=== PATIENT | male | born 1995 | race Caucasian/White ===

== ENCOUNTER 2017-02-28 15:29 | Inpatient (IN) | payer OTHER ==
[~2017-02-28] VITALS: Ht 190.5 cm; Wt 159.1 kg
[2017-02-28 16:43] LABS: BENZODIAZEPINE, URINE NEG (NEG); COCAINE,URINE NEG (NEG); PHENCYCLIDINE, URINE NEG (NEG)
[2017-02-28 17:10] LABS: HEMATOCRIT 43.3 % (42-52); MEAN CELL VOLUME 82.5 fL (80-100); MEAN CORPUSCULAR HEMOGLOBIN 30.3 pg (25-34); MEAN CORPUSCULAR HGB CONC 36.7 g/dl (32-36); MEAN PLATELET VOLUME 9.8 fL (7.4-10.4); PLATELET COUNT 292 K/uL (130-400); RED BLOOD COUNT 5.25 M/uL (4.7-6.1); WHITE BLOOD COUNT 8.57 K/uL (4.8-10.8)
[2017-02-28 17:33] LABS: ALT/SGPT 34 U/L (12-78); AST/SGOT 13 U/L (15-37); BLOOD UREA NITROGEN 12 mg/dl (7-18); BUN/CREATININE RATIO 11.9 (10-20); CARBON DIOXIDE 24 mmol/L (21-32); CHLORIDE 107 mmol/L (98-107); CREATININE 0.98 mg/dl (0.60-1.40); GLUCOSE 98 mg/dl (70-99); POTASSIUM 3.8 mmol/L (3.5-5.1); SODIUM 136 mmol/L (136-145)
[2017-02-28 17:37] LABS: ACETAMINOPHEN < 2 ug/ml (10-30)
[2017-02-28 17:44] LABS: ALKALINE PHOSPHATASE 84 U/L (45-117)
--- NOTE | 2017-02-28 17:51 | EMERGENCY ROOM VISIT NOTE ---
History Report prepared by Ulises: Bc Villalta Under the Supervision of: Dr. Anuel Goldsmith M.D. First contact with patient: 15:41 Chief Complaint: MENTAL HEALTH EVALUATION Stated Complaint: SUICIDAL THOUGHTS History of Present Illness The patient is a 22 year old male who presents to the Emergency Room for a mental health evaluation. He has been intermittently depressed for about 2 years. He was first started on Wellbutrin but recently changed to Prozac 2 weeks ago. A couple of weeks ago, the patient began having suicidal thoughts including cutting himself and overdosing on medications. He states that he has been having increased stresses and pressures from school that have exacerbated his depression. His parents are the main reason why he has not followed through with either of his suicide plans. He denies any relationship troubles, of loved ones, or other health issues. He has been following up with a therapist over these past years. Today, he had a mental break down so he called his parents. They told him to call his therapist who was not in the office, but referred him to the ER. He has never before been hospitalized for his mental health. He has some friends and a roommate at school, but states that he does not like to talk about his feelings with other people. He denies any abnormal physical symptoms at this time. He smokes marijuana about two times a week, but denies doing it recently. Source of History: patient Onset: a couple weeks ago Position: other (Mental Health) Symptom Intensity: moderate Quality: other (Depression) Timing: worsening Note: He has been having suicidal thoughts with a plan to either cut himself or overdose on medications. He denies any abnormal physical symptoms. Review of Systems See HPI for pertinent positives & negatives. A total of 10 systems reviewed and were otherwise negative. Past Medical & Surgical Medical Problems: (1) Depression Family History Patient reports no known family medical history. Social History Smoking Status: Never Smoker Smokeless Tobacco Use: No Drug Use: marijuana Marital Status: single Occupation Status: student Physical Exam Vital Signs Date Time Temp Pulse Resp B/P (MAP) Pulse Ox O2 Delivery O2 Flow Rate FiO2 02/28/17 15:34 37.3 92 18 137/94 97 Room Air Physical Exam Constitutional: Vital signs reviewed. Eyes: Pupils are equal round reactive to light. Conjunctiva are noninjected. ENT: Pharynx is clear without erythema or exudate. Mucous membranes are moist. Neck supple without meningeal signs. Respiratory: Clear to auscultation bilaterally. Breath sounds are equal bilaterally. Cardiovascular: Regular rate and rhythm. No rubs or gallops. GI: Soft, nondistended and nontender. Bowel sounds are present. Musculoskeletal: No peripheral edema. No wrist lacerations. Integumentary: No cyanosis. Neurological: The patient is awake and alert. No focal deficits. Psychiatric: Depressed affect. Medical Decision & Procedures Laboratory Results 02/28/17 16:46 02/28/17 16:46 Test 02/28/17 16:00 02/28/17 16:46 Urine Opiates Screen NEG (NEG) Urine Methadone, Qualitative NEG (NEG) Urine Barbiturates NEG (NEG) Urine Phencyclidine (PCP) Level NEG (NEG) Ur Amphetamine/Methamphetamine NEG (NEG) MDMA (Ecstasy) Screen NEG (NEG) Urine Benzodiazepines Screen NEG (NEG) Urine Cocaine Metabolite NEG (NEG) Urine Marijuana (THC) POS (NEG) Red Blood Count 5.25 M/uL (4.7-6.1) Mean Corpuscular Volume 82.5 fL (80-100) Mean Corpuscular Hemoglobin 30.3 pg (25-34) Mean Corpuscular Hemoglobin Concent 36.7 g/dl (32-36) RDW Standard Deviation 37.5 fL (36.4-46.3) RDW Coefficient of Variation 12.5 % (11.5-14.5) Mean Platelet Volume 9.8 fL (7.4-10.4) Anion Gap 5.0 mmol/L (3-11) Est Creatinine Clear Calc Drug Dose 191.2 ml/min Estimated GFR () 126.3 Estimated GFR (Non- 109.0 BUN/Creatinine Ratio 11.9 (10-20) Calcium Level 9.0 mg/dl (8.5-10.1) Total Bilirubin 0.3 mg/dl (0.2-1) Direct Bilirubin < 0.1 mg/dl (0-0.2) Aspartate Amino Transf (AST/SGOT) 13 U/L (15-37) Alanine Aminotransferase (ALT/SGPT) 34 U/L (12-78) Alkaline Phosphatase 84 U/L (45-117) Total Protein 7.3 gm/dl (6.4-8.2) Albumin 3.5 gm/dl (3.4-5.0) Thyroid Stimulating Hormone (TSH) 1.880 uIu/ml (0.300-4.500) Salicylates Level < 1.7 mg/dl (2.8-20) Acetaminophen Level < 2 ug/ml (10-30) Ethyl Alcohol mg/dL < 3.0 mg/dl (0-3) Laboratory results as reviewed by me. ED Course 1541: The patient was evaluated in room A6. A complete history and physical exam was performed. 1655: After evaluation by case management, he scored high on the suicide risk assessment. He is willing to sign into the hospital voluntarily for further mental health management. Medical Decision This is a 22-year-old male who presents for mental health evaluation. I did perform a limited focused review of portions of the patient's old chart on the electronic medical record. The patient has had no recent pertinent visits to this hospital. I did evaluate the patient as noted above. I did order and review the patient's blood work as noted in the electronic medical record. Urine drug screen shows marijuana. I did medically clear the patient. The patient was evaluated by the mental health outsole caser and 3 S. He was admitted to the 3 S. behavioral unit voluntarily. Medication Reconcilliation Current Medication List: was personally reviewed by me Blood Pressure Screening Patient's blood pressure: Elevated blood pressure Blood pressure disposition: Referred to PCP Impression Primary Impression: Mood disorder Additional Impression: Suicidal ideation Scribe Attestation The scribe's documentation has been prepared under my direct and personally reviewed by me in its entirety. I confirm that the note above accurately reflects all work, treatment, procedures, and medical decision making performed by me. Departure Information Dispostion Mental Health Acute Care Referrals No Doctor, Assigned (PCP) Patient Instructions My [facility] Problem Qualifiers
[2017-02-28 18:32] LABS: URINE APPEARANCE CLEAR (CLEAR); URINE BILIRUBIN NEG (NEG); URINE COLOR YELLOW; URINE NITRITE NEG (NEG); URINE PH 7.5 (4.5-7.5); UROBILINOGEN NEG (NEG); ZZUR CULT IF INDIC CLEAN CATCH NO
[2017-02-28 18:38] LABS: MANUAL MICROSCOPIC REQUIRED? NO; REVIEW REQ? NO
[2017-02-28 19:01] VITALS: O2SAT 99
[2017-02-28] MEDS ORDERED: PATIENT'S ALLERGY INFO NEEDS ENTERED SCH (19:30)
[2017-02-28] MEDS ORDERED: NURSING VERBAL MED ORDER SCH (19:30)
[2017-02-28] MEDS ORDERED: ALUMINUM/MAGNESIUM SUSP 30 ML UDC PO PRN (19:45)
[2017-02-28] MEDS ORDERED: SODIUM CHLORIDE 0.65% NA SOLN 45 ML (OCEAN) PRN (19:45)
[2017-02-28] MEDS ORDERED: ACETAMINOPHEN 325 MG TAB PO PRN (19:45)
[2017-02-28] MEDS ORDERED: MAGNESIUM HYDROXIDE SUSP 30 ML UDC PO PRN (19:45)
[2017-02-28] MEDS ORDERED: hydrOXYzine HCL 25 MG TAB PO PRN ×2 (19:45)
[2017-02-28] MEDS ORDERED: BISMUTH SUBSALICYLATE PER ML OMNICELL CHARGE PO PRN (19:45)
[2017-02-28 20:44] VITALS: BP 135/84; PULSE 76; TEMP 37.3; BMI 43.8
[2017-02-28] MEDS: FLUOXETINE HCL 10 MG CAP PO SCH (22:38)
[2017-03-01 07:07] VITALS: BP_SYST 113; BP_SYST 118; BP_DIAS 79; BP_DIAS 83; PULSE 66; PULSE 69; TEMP 36.5
[2017-03-01 07:12] VITALS: Ht 190.5 cm; Wt 159.1 kg
[2017-03-01] MEDS: FLUOXETINE HCL 10 MG CAP PO SCH (09:06)
[2017-03-01] MEDS ORDERED: NURSING VERBAL MED ORDER ONE (12:15)
--- NOTE | 2017-03-01 18:02 | Psychiatric History & Physical ---
History Date of Service Mar 01, 2017. Identifying Data Kahlil Gómez is a 22-year-old male from [place], [place] who currently attends [employer]. Kahlil Gómez was admitted on a 201 voluntary commitment. Patient is admitted from home. Information provided by the patient is considered to be reliable. Chief Complaint "Depression". History of Present Illness 22 year old male who presents to the Emergency Room for a mental health evaluation. He has been depressed on and off for about 2 years. Started seeing LUDY Ivy at [place] around start of summer 2016 and prescribed Wellbutrin. Initially felt that depression was improving but then stopped it later in summer after feeling that benefits had worn off so discontinued medication and off medications for a few months. Returned back home over break and saw his PCP Rizwana Hanley and started on Prozac 10mg daily for a week and then increased to 20mg about 1 1/2 weeks ago. A couple of weeks ago, the patient began having suicidal thoughts including cutting himself and overdosing on medications. Increased stresses and pressures from school as he has has fallen farther behind as he has not attended classes in about a month and has not reached out to his professors and this has aggravated his depression. Increased stress of being let go from his job at a [employer] 3 days prior to admission due to frequently calling off. Seeing his therapist [facility] [facility]. His parents have been his main support and reason why he has not followed through with either of his suicide plans. They told him to call his therapist who was not in the office, but referred him to the ER. He has never before been hospitalized for his mental health. He has some friends and a roommate at school, but states that he does not like to talk about his feelings with other people. Increased social anxiety and avoids social situations. Smokes marijuana about two times a week. Past Psychiatric History Current OP Treatment: no current treatment (saw physician social and human services assistant Shavon Martinez in the past.) Prior OP Treatment: therapist (at [facility]) Prior Psych Hospitalizations: none Access to a Gun: No Suicide Attempts: Yes (just before entering senior year of high school suicide attempt by overdose of pain medications.) Past Medical/Surgical History History of Concussion/Seizure: No (1) Depression (2) Suicidal ideation (3) Anxiety Allergies Allergies: Coded Allergies: No Known Allergies (Unverified , 02/28/17) Family History Patient reports no known family medical history. History of Suicide: No History of Substance Abuse: Yes (Father - alcohol. Grandfather-alcohol. Uncle - alcohol and drugs.) Psychiatric History: Yes (Mother - seasonal affective disorder - Prozac. Brother - ADHD. Cousin - on psych meds - ? diagnosis ?Bipolar disorder per patient) Alcohol Use Alcohol Use In Past 12 Months: Yes (3-4 liquor drinks 2-3 times a week) AUDIT Total Score: 4 Smoking Use Smoking Status: Never Smoker Substance History Marijuana 1 to 2 times per month. Personal History Lives in: [place], [place] Education: started college ([employer] studying economics. ) Work History: fired from job at [employer] 3 days ago. Relationship History: never Children: none Spiritual Affiliation: none Legal History: none Psychological Trauma History: Denies Hx Traumatic Event Review of Systems Constitutional: no symptoms reported Eyes: reports: no symptoms ENT: reports: no symptoms reported Cardiovascular: reports: no symptoms reported Respiratory: reports: no symptoms reported Gastrointestinal: no symptoms reported Genitourinary - Male: reports: no symptoms Musculoskeletal: no symptoms reported Integumentary: no symptoms reported Neurologic: reports: no symptoms Endocrine: no symptoms Hematologic / Lymphatic: no symptoms Examination Physical Examination A physical exam was performed in the ER prior to admission to the unit by Anuel Goldsmith MD 02/28/2017. I accept that physical as correct/medical clearance for the inpatient physical exam. Vital Signs Vital Signs Past 12 Hours Date Time Temp Pulse Resp B/P (MAP) Pulse Ox O2 Delivery O2 Flow Rate FiO2 03/01/17 07:07 36.5 66 18 113/79 69 118/83 Mental Examination During interview pt is: alert and oriented Appearance: appropriately dressed, appropriately groomed Eye contact is: good Motor behavior is: steady gait & station, no abnormal motor movements Speech: normal in rate, rhythm & volume Affect: depressed, anxious Mood is: depressed, anxious Thought process: goal directed, clear, coherent Thought content: reality based without delusions Suicidal thought are: denied Homicidal thoughts are: denied Hallucinations: denies auditory, denies visual Cognition: memory grossly intact, attention grossly intact Intelligence estimated to be: consistent with level of education Insight: good Judgement: fair Impression / Recommendations Impression 22 yo male [facility]. History of depression and anxiety for past 3 years. Stressors include not attending classes and struggling academically and due to frequent call offs was fired from his job at [employer] 3 days prior to admission. Presented with depression and suicidal thoughts. Past history of suicide attempt just before entering senior year of high school by overdose of pain medications. Inventory Assets Strengths: supportive parents and attending outpatient therapy. Needs: struggling academically and not attending classes Risk Factors Assessment Male: Yes : Yes Access to guns: No Mental Health Diagnoses: Yes Substance use disorders: Yes Previous attempt: Yes Previous attempt; planned: Yes Family history of suicide: No Previous psychiatric stay: No Protective Factors Assessment Jew beliefs: No : No Responsible for young children: No Employed: No Stable relationships: No Supportive family: Yes Recommendations (1) Depression The patient is admitted to [facility] ([facility]) on q 15 min checks (behavioral with suicide precautions) for safety. The patient will participate in group, recreational and milieu therapies and will be offered additional individual and family sessions as clinically appropriate. Will continue Prozac 20mg daily which he initiated about 1 1/2 weeks ago. Will coordinate care with his outpatient providers including PCP and therapist at [facility]. Will contact student affairs department at [employer] and help patient navigate academic difficulties. Reviewed mood altering effects of alcohol and marijuana and encouraged patient to abstain. (2) Anxiety The patient is admitted to [facility] ([facility] on q 15 min checks (behavioral with suicide precautions) for safety. The patient will participate in group, recreational and milieu therapies and will be offered additional individual and family sessions as clinically appropriate. Will continue Prozac 20mg daily which he initiated about 1 1/2 weeks ago. Will coordinate care with his outpatient providers including PCP and therapist at [facility]. Will contact student affairs department at [employer] and help patient navigate academic difficulties. Reviewed mood altering effects of alcohol and marijuana and encouraged patient to abstain. (3) Suicidal ideation The patient is admitted to [facility] ([facility]) on q 15 min checks (behavioral with suicide precautions) for safety. The patient will participate in group, recreational and milieu therapies and will be offered additional individual and family sessions as clinically appropriate. CPT Code Initial Hospital Care: 12356 Problem Qualifiers (1) Depression: Depression Type: major depressive disorder Major depression recurrence: recurrent Active/Remission status: currently active Major depression episode severity: severe Psychotic features: without psychotic features Qualified Codes: F33.2 - Major depressive disorder, recurrent severe without psychotic features
[2017-03-02 07:14] VITALS: BP_SYST 110; BP_SYST 117; BP_DIAS 74; BP_DIAS 79; PULSE 61; PULSE 76; TEMP 36.5
[2017-03-02] MEDS: FLUOXETINE HCL 20 MG CAP PO SCH (09:39)
--- NOTE | 2017-03-02 15:13 | Psychiatric Progress Notes ---
Progress Note Date of Service Mar 02, 2017. Interval History Kahlil Gómez is a 22-year-old male from [place], [place] who currently attends [employer]. Kahlil Gómez was admitted on a 201 voluntary commitment. Patient is admitted from home. Information provided by the patient is considered to be reliable. Chief Complaint "Feel okay". Subjective Patient was seen & assessed interval progress reviewed with Nursing. Patient reports that his mood is okay and rates it as 5/10. Tolerating medications well. Denies thoughts to harm self or others. Had a visit from parents and patient updated them about declining school performance and they were very supportive. Review of Systems Psych: denies symptoms other than stated above Constitutional: denied Cardiovascular: denied GI: denied Neurologic: denied Remainder of 10 body systems also reviewed and denied other than noted above. Sleep Information Total Hours of Sleep: 5.50 Meal Information Percent of Breakfast Consumed: 100 Percent of Lunch Consumed: 75 Percent of Dinner Consumed: 85 Mental Status Exam During interview pt is: alert and oriented Appearance: appropriately dressed, appropriately groomed Eye contact is: good Motor behavior is: steady gait & station, no abnormal motor movements Speech: normal in rate, rhythm & volume Affect: depressed, anxious Mood is: depressed, anxious Thought process: goal directed, clear, coherent Thought content: reality based without delusions Suicidal thought are: denied Homicidal thoughts are: denied Hallucinations: denies auditory, denies visual Cognition: memory grossly intact, attention grossly intact Intelligence estimated to be: consistent with level of education Insight: good Judgement: fair Impression 22 yo male [facility]. History of depression and anxiety for past 3 years. Stressors include not attending classes and struggling academically and due to frequent call offs was fired from his job at [employer] 3 days prior to admission. Presented with depression and suicidal thoughts. Past history of suicide attempt just before entering senior year of high school by overdose of pain medications. Plan (1) Depression The patient is admitted to [facility]) on q 15 min checks (behavioral with suicide precautions) for safety. The patient will participate in group, recreational and milieu therapies and will be offered additional individual and family sessions as clinically appropriate. Will continue Prozac 20mg daily which he initiated about 1 1/2 weeks ago. Will coordinate care with his outpatient providers including PCP and therapist at [facility]. Will contact student affairs department at [employer] and help patient navigate academic difficulties. Reviewed mood altering effects of alcohol and marijuana and encouraged patient to abstain. 03/02 -Continue Prozac 20mg daily. -family meeting on 03/03/2017 and has follow up appointment with psychiatrist in [place] on 03/04/2017 (2) Anxiety The patient is admitted to [facility] ([facility]) on q 15 min checks (behavioral with suicide precautions) for safety. The patient will participate in group, recreational and milieu therapies and will be offered additional individual and family sessions as clinically appropriate. Will continue Prozac 20mg daily which he initiated about 1 1/2 weeks ago. Will coordinate care with his outpatient providers including PCP and therapist at [facility]. Will contact student affairs department at [employer] and help patient navigate academic difficulties. Reviewed mood altering effects of alcohol and marijuana and encouraged patient to abstain. (3) Suicidal ideation The patient is admitted to [facility] ([facility]) on q 15 min checks (behavioral with suicide precautions) for safety. The patient will participate in group, recreational and milieu therapies and will be offered additional individual and family sessions as clinically appropriate. Discharge / Aftercare Planning Primary Care Physician: Name: Rizwana Hanley Therapist: Name: [facility]; Chad Heat Curer: Name: None Visit Code E&M Code: 52018 Inventory Assets Strengths: supportive parents and attending outpatient therapy. Needs: struggling academically and not attending classes Risk Factors Assessment Male: Yes : Yes Mental Health Diagnoses: Yes Substance use disorders: Yes Previous attempt: Yes Previous attempt; planned: Yes Family history of suicide: No Previous psychiatric stay: No Protective Factors Assessment Baptist beliefs: No : No Responsible for young children: No Employed: No Stable relationships: No Supportive family: Yes Data Vital Signs Last 24 Hrs: Date Time Temp Pulse Resp B/P (MAP) Pulse Ox O2 Delivery O2 Flow Rate FiO2 03/02/17 07:14 36.5 61 18 110/74 76 117/79 Meds Administered Last 24 Hrs: Meds Administered (Past 24Hrs) Medications (Trade) Dose Ordered Sig/Jovani Route Start Time Stop Time Status Last Admin Dose Admin Miscellaneous Information (Patient'S Allergy Info Needs Entered) 1 ea Q10M N/A 02/28/17 19:30 02/28/17 19:35 DC 02/28/17 19:31 1 EA Fluoxetine HCl (Prozac Cap) 10 mg BID PO 02/28/17 21:00 03/01/17 11:28 DC 03/01/17 09:06 10 MG Fluoxetine HCl (Prozac Cap) 20 mg QAM PO 03/02/17 09:00 04/01/17 08:59 03/02/17 09:39 20 MG Problem Qualifiers (1) Depression: Depression Type: major depressive disorder Major depression recurrence: recurrent Active/Remission status: currently active Major depression episode severity: severe Psychotic features: without psychotic features Qualified Codes: F33.2 - Major depressive disorder, recurrent severe without psychotic features
[2017-03-03 07:03] VITALS: BP_SYST 102; BP_SYST 110; BP_DIAS 69; BP_DIAS 76; PULSE 65; PULSE 81; TEMP 36.5
[2017-03-03] MEDS: FLUOXETINE HCL 20 MG CAP PO SCH (08:59)
--- NOTE | 2017-03-03 12:45 | Psychiatric Progress Notes ---
Progress Note Date of Service Mar 03, 2017. Interval History Kahlil Gómez is a 22-year-old male from [place], [place] who currently attends [facility]. Kahlil Gómez was admitted on a 201 voluntary commitment. Patient is admitted from home. Information provided by the patient is considered to be reliable. Chief Complaint "I just had a good group. ". Subjective Patient was seen & assessed interval progress reviewed with Treatment Team. The patient says that he is benefitting from being here and sees it as his job to learn new ways to deal with his anxiety. He feels that he has been an anxious person since he was a preteen, and does not deal with it well. He also says that he has trouble "opening up" to people and believes that this is why he stopped going to therapy at [facility]. He really enjoyed group therapy today as the topic was coping strategies. He comes from a family of depressed and anxious people, some of whom have recieved treatment with medications. He denies having any further SI, but remains anxious with legs constantly shaking during the interview. He denies any side effects to Proza Review of Systems Constitutional: No fever, No chills, No sweats, No weight loss, No weakness, No fatigue, No problem reported ENT: No hearing loss, No unusual epistaxis, No nasal symptoms, No sore throat, No tinnitus, No dental problems, No trouble swallowing, No problem reported Respiratory: No cough, No sputum, No wheezing, No shortness of breath, No dyspnea on exertion, No dyspnea at rest, No hemoptysis, No problem reported Cardiovascular: No chest pain, No orthopnea, No PND, No edema, No claudication , No palpitations, No problem reported Abdomen: No pain, No nausea, No vomiting, No diarrhea, No constipation, No GI bleeding, No problem reported Musculoskeletal: No joint pain, No muscle pain, No swelling, No calf pain, No problem reported Neurologic: No memory loss, No paralysis, No weakness, No numbness/tingling, No vertigo, No balance problems, No problem reported Psychiatric: + anxiety Sleep Information Total Hours of Sleep: 5.50 Meal Information Percent of Breakfast Consumed: 100 Percent of Lunch Consumed: 75 Percent of Dinner Consumed: 100 Mental Status Exam During interview pt is: alert and oriented Appearance: appropriately dressed, appropriately groomed, other (cheeks flushed ) Eye contact is: good Motor behavior is: steady gait & station, psychomotor agitation (nervous shaking of his legs) Speech: normal in rate, rhythm & volume Affect: depressed, anxious Mood is: depressed, anxious Thought process: goal directed, clear, coherent Thought content: reality based without delusions Suicidal thought are: denied Homicidal thoughts are: denied Hallucinations: denies auditory, denies visual Cognition: memory grossly intact, attention grossly intact Intelligence estimated to be: consistent with level of education Insight: good Judgement: fair Impression Adjusting well to the support and structure of the unit, and tolerating the initiation of Prozac. Remains highly anxious and will benefit from ongoing educations about anxiety and coping strategies. Continue current plan Plan (1) Depression The patient is admitted to [facility] ([facility]) on q 15 min checks (behavioral with suicide precautions) for safety. The patient will participate in group, recreational and milieu therapies and will be offered additional individual and family sessions as clinically appropriate. Will continue Prozac 20mg daily which he initiated about 1 1/2 weeks ago. Will coordinate care with his outpatient providers including PCP and therapist at [facility]. Will contact student affairs department at [employer] and help patient navigate academic difficulties. Reviewed mood altering effects of alcohol and marijuana and encouraged patient to abstain. 03/02 -Continue Prozac 20mg daily. -family meeting on 03/03/2017 and has follow up appointment with psychiatrist in [place] on 03/04/201703/03 - Continue current plan (2) Anxiety The patient is admitted to [facility] ([facility]) on q 15 min checks (behavioral with suicide precautions) for safety. The patient will participate in group, recreational and milieu therapies and will be offered additional individual and family sessions as clinically appropriate. Will continue Prozac 20mg daily which he initiated about 1 1/2 weeks ago. Will coordinate care with his outpatient providers including PCP and therapist at [facility]. Will contact student affairs department at [employer] and help patient navigate academic difficulties. Reviewed mood altering effects of alcohol and marijuana and encouraged patient to abstain. 03/03 - Assist the patient to explore concepts of mindfulness. (3) Suicidal ideation The patient is admitted to [facility] ([facility]) on q 15 min checks (behavioral with suicide precautions) for safety. The patient will participate in group, recreational and milieu therapies and will be offered additional individual and family sessions as clinically appropriate. Discharge / Aftercare Planning Primary Care Physician: Name: Rizwana Hanley Therapist: Name: [facility]; Chad Plug Stitcher: Name: None Visit Code E&M Code: 80555 Inventory Assets Strengths: supportive parents and attending outpatient therapy. Needs: struggling academically and not attending classes Risk Factors Assessment Male: Yes : Yes Mental Health Diagnoses: Yes Substance use disorders: Yes Previous attempt: Yes Previous attempt; planned: Yes Family history of suicide: No Previous psychiatric stay: No Protective Factors Assessment Hindu beliefs: No : No Responsible for young children: No Employed: No Stable relationships: No Supportive family: Yes Data Vital Signs Last 24 Hrs: Date Time Temp Pulse Resp B/P (MAP) Pulse Ox O2 Delivery O2 Flow Rate FiO2 03/03/17 07:03 36.5 65 18 102/69 81 110/76 Meds Administered Last 24 Hrs: Meds Administered (Past 24Hrs) Medications (Trade) Dose Ordered Sig/Jovani Route Start Time Stop Time Status Last Admin Dose Admin Fluoxetine HCl (Prozac Cap) 20 mg QAM PO 03/02/17 09:00 04/01/17 08:59 03/03/17 08:59 20 MG Lab Results Last 24 Hrs: 02/28/17 16:46 02/28/17 16:46 Test 02/28/17 16:00 02/28/17 16:46 Urine Color YELLOW Urine Appearance CLEAR (CLEAR) Urine pH 7.5 (4.5-7.5) Urine Specific [place] 1.020 (1.000-1.030) Urine Protein NEG (NEG) Urine Glucose (UA) NEG (NEG) Urine Ketones NEG (NEG) Urine Occult Blood NEG (NEG) Urine Nitrite NEG (NEG) Urine Bilirubin NEG (NEG) Urine Urobilinogen NEG (NEG) Urine Leukocyte Esterase NEG (NEG) Urine Opiates Screen NEG (NEG) Urine Methadone, Qualitative NEG (NEG) Urine Barbiturates NEG (NEG) Urine Phencyclidine (PCP) Level NEG (NEG) Ur Amphetamine/Methamphetamine NEG (NEG) MDMA (Ecstasy) Screen NEG (NEG) Urine Benzodiazepines Screen NEG (NEG) Urine Cocaine Metabolite NEG (NEG) Urine Marijuana (THC) POS (NEG) Urine Marijuana (THC Carboxy Acid) 93 NG/ML (CUTOFF=5) Red Blood Count 5.25 M/uL (4.7-6.1) Mean Corpuscular Volume 82.5 fL (80-100) Mean Corpuscular Hemoglobin 30.3 pg (25-34) Mean Corpuscular Hemoglobin Concent 36.7 g/dl (32-36) RDW Standard Deviation 37.5 fL (36.4-46.3) RDW Coefficient of Variation 12.5 % (11.5-14.5) Mean Platelet Volume 9.8 fL (7.4-10.4) Anion Gap 5.0 mmol/L (3-11) Est Creatinine Clear Calc Drug Dose 191.2 ml/min Estimated GFR () 126.3 Estimated GFR (Non- 109.0 BUN/Creatinine Ratio 11.9 (10-20) Calcium Level 9.0 mg/dl (8.5-10.1) Total Bilirubin 0.3 mg/dl (0.2-1) Direct Bilirubin < 0.1 mg/dl (0-0.2) Aspartate Amino Transf (AST/SGOT) 13 U/L (15-37) Alanine Aminotransferase (ALT/SGPT) 34 U/L (12-78) Alkaline Phosphatase 84 U/L (45-117) Total Protein 7.3 gm/dl (6.4-8.2) Albumin 3.5 gm/dl (3.4-5.0) Thyroid Stimulating Hormone (TSH) 1.880 uIu/ml (0.300-4.500) Salicylates Level < 1.7 mg/dl (2.8-20) Acetaminophen Level < 2 ug/ml (10-30) Ethyl Alcohol mg/dL < 3.0 mg/dl (0-3) Problem Qualifiers (1) Depression: Depression Type: major depressive disorder Major depression recurrence: recurrent Active/Remission status: currently active Major depression episode severity: severe Psychotic features: without psychotic features Qualified Codes: F33.2 - Major depressive disorder, recurrent severe without psychotic features
[2017-03-04 07:10] VITALS: BP_SYST 111; BP_SYST 113; BP_DIAS 75; BP_DIAS 78; PULSE 66; PULSE 80; TEMP 36.5
[2017-03-04] MEDS: FLUOXETINE HCL 20 MG CAP PO SCH (08:58)
--- NOTE | 2017-03-04 13:30 | Psychiatric Progress Notes ---
Progress Note Date of Service Mar 04, 2017. Interval History Kahlil Gómez is a 22-year-old male from [place], [place] who currently attends [employer]. Kahlil Gómez was admitted on a 201 voluntary commitment. Patient is admitted from home. Information provided by the patient is considered to be reliable. Chief Complaint "OK". Subjective Patient was seen & assessed interval progress reviewed with Treatment Team. The patient says that his mood is much better than on arrival to the unit but his anxiety remains high and chronic. Meeting is scheduled with his father tomorrow and he is anxious about his father's response to him wanting to take a withdrawal from this semester. He took one from a semester in his sophomore year, but didn't do so until this past summer. He hopes that his father understands. He denies having had any SI since admission. Appetite is good, sleep was better last night after taking a prn vistaril, but still says that he lays awake worrying. Review of Systems Constitutional: No fever, No chills, No sweats, No weight loss, No weakness, No fatigue, No problem reported ENT: No hearing loss, No unusual epistaxis, No nasal symptoms, No sore throat, No tinnitus, No dental problems, No trouble swallowing, No problem reported Respiratory: No cough, No sputum, No wheezing, No shortness of breath, No dyspnea on exertion, No dyspnea at rest, No hemoptysis, No problem reported Cardiovascular: No chest pain, No orthopnea, No PND, No edema, No claudication , No palpitations, No problem reported Abdomen: No pain, No nausea, No vomiting, No diarrhea, No constipation, No GI bleeding, No problem reported Musculoskeletal: No joint pain, No muscle pain, No swelling, No calf pain, No problem reported Neurologic: No memory loss, No paralysis, No weakness, No numbness/tingling, No vertigo, No balance problems, No problem reported Psychiatric: + anxiety Integumentary: No rash, No itch, No new/changing skin lesions, No color change , No bleeding, No problem reported Sleep Information Total Hours of Sleep: 6.00 Meal Information Percent of Breakfast Consumed: 100 Percent of Lunch Consumed: 40 Percent of Dinner Consumed: 100 Mental Status Exam During interview pt is: alert and oriented Appearance: appropriately dressed, appropriately groomed, other (cheeks flushed ) Eye contact is: good Motor behavior is: steady gait & station, psychomotor agitation (nervous shaking of his legs) Speech: normal in rate, rhythm & volume Affect: depressed, anxious Mood is: depressed, anxious Thought process: goal directed, clear, coherent Thought content: reality based without delusions Suicidal thought are: denied Homicidal thoughts are: denied Hallucinations: denies auditory, denies visual Cognition: memory grossly intact, attention grossly intact Intelligence estimated to be: consistent with level of education Insight: good Judgement: fair Impression Wants to take a withdrawal from this semester, and will talk with father in meeting tomorrow about this. Anxiety still high and so will increase Prozac to 40 mg. daily. Plan (1) Depression The patient is admitted to [facility] ([facility]) on q 15 min checks (behavioral with suicide precautions) for safety. The patient will participate in group, recreational and milieu therapies and will be offered additional individual and family sessions as clinically appropriate. Will continue Prozac 20mg daily which he initiated about 1 1/2 weeks ago. Will coordinate care with his outpatient providers including PCP and therapist at [facility]. Will contact student affairs department at [employer] and help patient navigate academic difficulties. Reviewed mood altering effects of alcohol and marijuana and encouraged patient to abstain. 03/02 -Continue Prozac 20mg daily. -family meeting on 03/03/2017 and has follow up appointment with psychiatrist in [place] on 03/04/201703/03 - Continue current plan 03/04 - Increase Prozac to 40 mg. daily (2) Anxiety The patient is admitted to [facility] ([facility]) on q 15 min checks (behavioral with suicide precautions) for safety. The patient will participate in group, recreational and milieu therapies and will be offered additional individual and family sessions as clinically appropriate. Will continue Prozac 20mg daily which he initiated about 1 1/2 weeks ago. Will coordinate care with his outpatient providers including PCP and therapist at [facility]. Will contact student affairs department at [employer] and help patient navigate academic difficulties. Reviewed mood altering effects of alcohol and marijuana and encouraged patient to abstain. 03/03 - Assist the patient to explore concepts of mindfulness. (3) Suicidal ideation The patient is admitted to [facility] (locked inpatient mental health unit) on q 15 min checks (behavioral with suicide precautions) for safety. The patient will participate in group, recreational and milieu therapies and will be offered additional individual and family sessions as clinically appropriate. Discharge / Aftercare Planning Primary Care Physician: Name: Rizwana Hanley Psychiatrist: Name: Rae Rock Jarrod Calderon Phone Number: [phone] Date of Appointment: Apr 07, 2017 Time of Appointment: 9:45 am Therapist: Name: Bobbi Fontaine [facility] Date of Appointment: Mar 11, 2017 Time of Appointment: 10:30 am Executive Kitchen Manager: Name: None Inventory Assets Strengths: supportive parents and attending outpatient therapy. Needs: struggling academically and not attending classes Risk Factors Assessment Male: Yes : Yes Mental Health Diagnoses: Yes Substance use disorders: Yes Previous attempt: Yes Previous attempt; planned: Yes Family history of suicide: No Previous psychiatric stay: No Protective Factors Assessment Mosque beliefs: No : No Responsible for young children: No Employed: No Stable relationships: No Supportive family: Yes Data Vital Signs Last 24 Hrs: Date Time Temp Pulse Resp B/P (MAP) Pulse Ox O2 Delivery O2 Flow Rate FiO2 03/04/17 07:10 36.5 66 18 113/75 80 111/78 Meds Administered Last 24 Hrs: Current Inpatient Medications Medications (Trade) Dose Ordered Sig/Jovani Route Start Time Stop Time Status Last Admin Dose Admin Acetaminophen (Tylenol Tab) 650 mg Q4H PRN PO 02/28/17 19:45 03/30/17 19:44 Al Hydroxide/Mg Hydroxide (Maalox Susp) 30 ml Q4H PRN PO 02/28/17 19:45 03/30/17 19:44 Bismuth Subsalicylate (Kaopectate Liqd) 15 ml DAILY PRN PO 02/28/17 19:45 03/30/17 19:44 Magnesium Hydroxide (Milk Of Magnesia Susp) 30 ml DAILY PRN PO 02/28/17 19:45 03/30/17 19:44 Sodium Chloride ([place] Nasal [place]) PRN PRN NA 02/28/17 19:45 03/30/17 19:44 Hydroxyzine HCl (Vistaril Tab) 50 mg HSZ PRN PO 02/28/17 19:45 03/30/17 19:44 03/03/17 23:24 50 MG Hydroxyzine HCl (Vistaril Tab) 25 mg Q4H PRN PO 02/28/17 19:45 03/30/17 19:44 Fluoxetine HCl (Prozac Cap) 40 mg QAM PO 03/05/17 09:00 04/04/17 08:59 UNV Lab Results Last 24 Hrs: 02/28/17 16:46 02/28/17 16:46 Test 02/28/17 16:00 02/28/17 16:46 Urine Color YELLOW Urine Appearance CLEAR (CLEAR) Urine pH 7.5 (4.5-7.5) Urine Specific [place] 1.020 (1.000-1.030) Urine Protein NEG (NEG) Urine Glucose (UA) NEG (NEG) Urine Ketones NEG (NEG) Urine Occult Blood NEG (NEG) Urine Nitrite NEG (NEG) Urine Bilirubin NEG (NEG) Urine Urobilinogen NEG (NEG) Urine Leukocyte Esterase NEG (NEG) Urine Opiates Screen NEG (NEG) Urine Methadone, Qualitative NEG (NEG) Urine Barbiturates NEG (NEG) Urine Phencyclidine (PCP) Level NEG (NEG) Ur Amphetamine/Methamphetamine NEG (NEG) MDMA (Ecstasy) Screen NEG (NEG) Urine Benzodiazepines Screen NEG (NEG) Urine Cocaine Metabolite NEG (NEG) Urine Marijuana (THC) POS (NEG) Urine Marijuana (THC Carboxy Acid) 93 NG/ML (CUTOFF=5) Red Blood Count 5.25 M/uL (4.7-6.1) Mean Corpuscular Volume 82.5 fL (80-100) Mean Corpuscular Hemoglobin 30.3 pg (25-34) Mean Corpuscular Hemoglobin Concent 36.7 g/dl (32-36) RDW Standard Deviation 37.5 fL (36.4-46.3) RDW Coefficient of Variation 12.5 % (11.5-14.5) Mean Platelet Volume 9.8 fL (7.4-10.4) Anion Gap 5.0 mmol/L (3-11) Est Creatinine Clear Calc Drug Dose 191.2 ml/min Estimated GFR () 126.3 Estimated GFR (Non- 109.0 BUN/Creatinine Ratio 11.9 (10-20) Calcium Level 9.0 mg/dl (8.5-10.1) Total Bilirubin 0.3 mg/dl (0.2-1) Direct Bilirubin < 0.1 mg/dl (0-0.2) Aspartate Amino Transf (AST/SGOT) 13 U/L (15-37) Alanine Aminotransferase (ALT/SGPT) 34 U/L (12-78) Alkaline Phosphatase 84 U/L (45-117) Total Protein 7.3 gm/dl (6.4-8.2) Albumin 3.5 gm/dl (3.4-5.0) Thyroid Stimulating Hormone (TSH) 1.880 uIu/ml (0.300-4.500) Salicylates Level < 1.7 mg/dl (2.8-20) Acetaminophen Level < 2 ug/ml (10-30) Ethyl Alcohol mg/dL < 3.0 mg/dl (0-3) Problem Qualifiers (1) Depression: Depression Type: major depressive disorder Major depression recurrence: recurrent Active/Remission status: currently active Major depression episode severity: severe Psychotic features: without psychotic features Qualified Codes: F33.2 - Major depressive disorder, recurrent severe without psychotic features
[2017-03-05 06:57] VITALS: BP_SYST 117; BP_SYST 120; BP_DIAS 75; BP_DIAS 83; PULSE 69; PULSE 79; TEMP 36.5
[2017-03-05] MEDS: FLUOXETINE HCL 20 MG CAP PO SCH (09:19)
--- NOTE | 2017-03-05 12:43 | Psychiatric Progress Notes ---
Progress Note Date of Service Mar 05, 2017. Interval History Kahlil Gómez is a 22-year-old male from [place], [place] who currently attends [employer]. Kahlil Gómez was admitted on a 201 voluntary commitment. Patient is admitted from home. Information provided by the patient is considered to be reliable. Chief Complaint "Good, I'm feeling a lot better". Subjective Patient was seen & assessed interval progress reviewed with Treatment Team. Staff report the patient has been attending groups and participating appropriately. He has a meeting scheduled with his father for this afternoon. On my assessment, he states his mood is improving, and he feels treatment has been helpful. He is working on ways to cope with stress and improving his communication skills, as he feels "these are some of my weak points." He is hoping to take a medical withdrawal from school, and would like to return for the spring, but is not sure if he will be able to, as he is worried about his grades. He would like assistance in figuring out whether or not it will be possible for him to come back in spring 2017. He denies side effects to medications, and denies SI. Sleep Information Total Hours of Sleep: 6.00 Meal Information Percent of Breakfast Consumed: 100 Percent of Lunch Consumed: 100 Percent of Dinner Consumed: 100 Mental Status Exam During interview pt is: alert and oriented, cooperative Appearance: appropriately dressed, appropriately groomed, other (cheeks flushed ) Eye contact is: good Motor behavior is: steady gait & station, no abnormal motor movements Speech: normal in rate, rhythm & volume Affect: anxious, other (reactive, appropriate) Mood is: other ("better") Thought process: goal directed, clear, coherent Thought content: reality based without delusions Suicidal thought are: denied Homicidal thoughts are: denied Hallucinations: denies auditory, denies visual Cognition: memory grossly intact, attention grossly intact Intelligence estimated to be: consistent with level of education Insight: good Judgement: fair Impression Wants to take a withdrawal from this semester, and will talk with father about this in their meeting today. Fluoxetine was increased to 40 mg. daily today. Plan (1) Depression The patient is admitted to [facility] ([facility] mental health unit) on q 15 min checks (behavioral with suicide precautions) for safety. The patient will participate in group, recreational and milieu therapies and will be offered additional individual and family sessions as clinically appropriate. Will continue Prozac 20mg daily which he initiated about 1 1/2 weeks ago. Will coordinate care with his outpatient providers including PCP and therapist at [facility]. Will contact student affairs department at [employer] and help patient navigate academic difficulties. Reviewed mood altering effects of alcohol and marijuana and encouraged patient to abstain. 03/02 -Continue Prozac 20mg daily. -family meeting on 03/03/2017 and has follow up appointment with psychiatrist in [place] on 03/04/201703/03 - Continue current plan 03/04 - Increase Prozac to 40 mg. daily 03/05 - Family meeting today, contact school re: medical withdrawal an question of returning for spring, and refer for aftercare. need to clarify if coming back to [employer] in the spring vs staying home, as if staying home, will need outpatient care there. (2) Anxiety The patient is admitted to [facility] ([facility] inpatient mental health unit) on q 15 min checks (behavioral with suicide precautions) for safety. The patient will participate in group, recreational and milieu therapies and will be offered additional individual and family sessions as clinically appropriate. Will continue Prozac 20mg daily which he initiated about 1 1/2 weeks ago. Will coordinate care with his outpatient providers including PCP and therapist at [facility]. Will contact student affairs department at [employer] and help patient navigate academic difficulties. Reviewed mood altering effects of alcohol and marijuana and encouraged patient to abstain. 03/03 - Assist the patient to explore concepts of mindfulness. (3) Suicidal ideation The patient is admitted to [facility] ([facility] inpatient mental health unit) on q 15 min checks (behavioral with suicide precautions) for safety. The patient will participate in group, recreational and milieu therapies and will be offered additional individual and family sessions as clinically appropriate. Discharge / Aftercare Planning Primary Care Physician: Name: Rizwana JO Appointment Notes: As neeeded Psychiatrist: Name: [facility] - [facility] Phone Number: [phone] Date of Appointment: Apr 07, 2017 Time of Appointment: 9:45 am [facility]rapist: [facility] Date of Appointment: Mar 11, 2017 Time of Appointment: 10:30 am Blasting Cap Assembler: Name: None Visit Code E&M Code: 18487 Inventory Assets Strengths: supportive parents and attending outpatient therapy. Needs: struggling academically and not attending classes Risk Factors Assessment Male: Yes : Yes Mental Health Diagnoses: Yes Substance use disorders: Yes Previous attempt: Yes Previous attempt; planned: Yes Family history of suicide: No Previous psychiatric stay: No Protective Factors Assessment Adventism beliefs: No : No Responsible for young children: No Employed: No Stable relationships: No Supportive family: Yes Data Vital Signs Last 24 Hrs: Date Time Temp Pulse Resp B/P (MAP) Pulse Ox O2 Delivery O2 Flow Rate FiO2 03/05/17 06:57 36.5 69 18 117/75 79 120/83 Meds Administered Last 24 Hrs: Meds Administered (Past 24Hrs) Medications (Trade) Dose Ordered Sig/Jovani Route Start Time Stop Time Status Last Admin Dose Admin Fluoxetine HCl (Prozac Cap) 40 mg QAM PO 03/05/17 09:00 04/04/17 08:59 03/05/17 09:19 40 MG Problem Qualifiers (1) Depression: Depression Type: major depressive disorder Major depression recurrence: recurrent Active/Remission status: currently active Major depression episode severity: severe Psychotic features: without psychotic features Qualified Codes: F33.2 - Major depressive disorder, recurrent severe without psychotic features
[2017-03-06 07:04] VITALS: BP 113/74; PULSE 66; PULSE 69; TEMP 36.4
[2017-03-06] MEDS: FLUOXETINE HCL 20 MG CAP PO SCH (09:18)
[2017-03-06] MEDS ORDERED: FLUO40CA8 PO (09:28)
--- NOTE | 2017-03-06 09:39 | Discharge Instructions ---
Discharge Information Report Includes Report will include the: Discharge Instructions & Summary Admission Admission Date / Time: Feb 28, 2017 at 19:16 Reason for Admission: Major Depression Disorder Discharge Discharge Diagnosis / Problem: Depression Condition at Discharge: Good Discharge Goals Goal(s): Decrease discomfort, Improve function Activity Recommendations Activity Limitations: resume your previous activity . Instructions / Follow-Up Instructions / Follow-Up . SPECIAL CARE INSTRUCTIONS: 1. Follow through with your scheduled aftercare appointments. If unable to keep an appointment, please call to reschedule. 2. Take your medication only as prescribed. Medication should not be changed or stopped without the approval of your doctor. In the event of worsening symptoms or concerns about side effects, contact your doctor immediately. 3. Utilize new healthy coping skills, anger management skills, and stress management skills learned during your hospitalization. Journal feelings and process them with a support person. Identify stressors or situations that may result in relapse, deterioration or inappropriate behaviors and develop a plan to deal with those issues. 4. If your coping skills are ineffective and you are in crisis, contact your outpatient providers for direction. If unable to reach your providers, please call the CAN HELP LINE AT or go to the closest Emergency Room. 5. Avoid alcohol and un-prescribed drugs. 6. You have been provided with the Mental Health Advance Directives Pamphlet for your review. AFTERCARE APPOINTMENTS: * Please call your insurance company prior to your scheduled appointment to confirm your aftercare providers are covered. Take your insurance information to your appointments. . Discharge / Aftercare Planning Primary Care Physician: Name: Rizwana JO Date of Appointment: Mar 10, 2017 Appointment Notes: As neeeded - parents secheduled time Psychiatrist: Name: [facility] - [facility] Phone Number: [phone] Date of Appointment: Apr 07, 2017 Time of Appointment: 9:45 am Therapist: [facility]: [facility] Date of Appointment: Mar 11, 2017 Time of Appointment: 10:30 am Vitamin Manager: Name: None . Follow-Up Care Plan for Follow-Up Care: The patient will return to his previous OP providers with appts in March when he returns to school. Current Hospital Diet Patient's current hospital diet: Regular Diet Discharge Diet Recommended Diet: Regular Diet Procedures Procedures Performed: No Pending Studies Pending Studies at Discharge: No Medical Emergencies . Who to Call and When: Medical Emergencies: For questions or emergencies related to your hospital stay, please contact the Inpatient Behavioral Health Unit at [phone]. A show host or hostess is on-call 14/10 for the Behavioral Health Unit for emergencies At any time you feel your situation is an emergency, you may also call 911 immediately. . Non-Emergent Contact Non-Emergency issues call your: Psychiatrist, Therapist Advance Directives Existing Advance Directive: No Do You Have an Existing Mental: No Existing Living Will: No Existing Power of Poultry And Fish Butcher: No Advance Directives Info Given: To Pt/S.O. Advance Directives Reason: Declines as Mental Health Visit. Discharge Summary Admission HPI Per the Admitting provider: 22 year old male who presents to the Emergency Room for a mental health evaluation. He has been depressed on and off for about 2 years. Started seeing LUDY Ivy at [facility] around start of summer 2016 and prescribed Wellbutrin. Initially felt that depression was improving but then stopped it later in summer after feeling that benefits had worn off so discontinued medication and off medications for a few months. Returned back home over and saw his PCP Rizwana Hanley and started on Prozac 10mg daily for a week and then increased to 20mg about 1 1/2 weeks ago. A couple of weeks ago, the patient began having suicidal thoughts including cutting himself and overdosing on medications. Increased stresses and pressures from school as he has has fallen farther behind as he has not attended classes in about a month and has not reached out to his professors and this has aggravated his depression. Increased stress of being let go from his job at a [employer] 3 days prior to admission due to frequently calling off. Seeing his therapist [facility]. His parents have been his main support and reason why he has not followed through with either of his suicide plans. They told him to call his therapist who was not in the office, but referred him to the ER. He has never before been hospitalized for his mental health. He has some friends and a roommate at school, but states that he does not like to talk about his feelings with other people. Increased social anxiety and avoids social situations. Smokes marijuana about two times a week. Hospital Course (1) Depression [facility]) on q 15 min checks (behavioral with suicide precautions) for safety. The patient will participate in group, recreational and milieu therapies and will be offered additional individual and family sessions as clinically appropriate. Will continue Prozac 20mg daily which he initiated about 1 1/2 weeks ago. Will coordinate care with his outpatient providers including PCP and therapist at [facility]. Will contact student affairs department at [employer] and help patient navigate academic difficulties. Reviewed mood altering effects of alcohol and marijuana and encouraged patient to abstain. 03/02 -Continue Prozac 20mg daily. -family meeting on 03/03/2017 and has follow up appointment with psychiatrist in [place] on 03/04/201703/03 - Continue current plan 03/04 - Increase Prozac to 40 mg. daily 03/05 - Family meeting today, contact school re: medical withdrawal an question of returning for spring, and refer for aftercare. need to clarify if coming back to [employer] in the spring vs staying home, as if staying home, will need outpatient care there. (2) Anxiety The patient is admitted to [facility] ([facility] inpatient mental health unit) on q 15 min checks (behavioral with suicide precautions) for safety. The patient will participate in group, recreational and milieu therapies and will be offered additional individual and family sessions as clinically appropriate. Will continue Prozac 20mg daily which he initiated about 1 1/2 weeks ago. Will coordinate care with his outpatient providers including PCP and therapist at [facility]. Will contact student affairs department at [employer] and help patient navigate academic difficulties. Reviewed mood altering effects of alcohol and marijuana and encouraged patient to abstain. 03/03 - Assist the patient to explore concepts of mindfulness. (3) Suicidal ideation The patient is admitted to [facility] ([facility] mental health unit) on q 15 min checks (behavioral with suicide precautions) for safety. The patient will participate in group, recreational and milieu therapies and will be offered additional individual and family sessions as clinically appropriate. Risk Factors Assessment Male: Yes : Yes Mental Health Diagnoses: Yes Substance use disorders: Yes Previous attempt: Yes Previous attempt; planned: Yes Family history of suicide: No Previous psychiatric stay: No Protective Factors Assessment Roman Catholic beliefs: No : No Responsible for young children: No Employed: No Stable relationships: No Supportive family: Yes Day of Discharge Assessment COURSE OF HOSPITALIZATION: The patient was on our unit for 6 days. During that time Prozac was increased to 40 mg daily and tolerated without side effect. His primary stressor been school, feeling unable to be successful because of his depression and had not told his parents. His parents were involved in a family meeting, and were supportive of the patient taking a medical withdrawal for this semester and returning in the spring. The patient had been in treatment with [facility] but had not gone in several months. He was willing to resume that outpatient treatment. He made good use of his time on the unit, attending both group and individual counseling. He has chronic high generalized anxiety which was persistent on the unit. He would frequently be seen with restlessness shaking of his legs. He explored new coping strategies during his stay including mindfulness concepts. After having discussed his plan to withdraw from school with his parents, he felt some situational relief of his anxiety. He denied any suicidal thinking during his stay. PADMINI OF DISCHARGE ASSESSMENT: Today the patient is requesting discharge. He feels improved over admission and ready to go home. He is pleased with the outcome of his family meeting and the decision to withdraw from school. Today the patient is casually and appropriately dressed and groomed. Gait and station are within normal limits. Eye contact is good. Affect is smiling. Speech is of normal rate volume and tone. Thoughts are organized, goal directed , and without evidence of thought disorder. Recent and remote memory are intact per conversation. Intelligence is estimated to be average. Insight and judgment are improved over admission. Laboratory Test 02/28/17 16:00 02/28/17 16:46 Urine Color YELLOW Urine Appearance CLEAR Urine pH 7.5 Urine Specific [place] 1.020 Urine Protein NEG Urine Glucose (UA) NEG Urine Ketones NEG Urine Occult Blood NEG Urine Nitrite NEG Urine Bilirubin NEG Urine Urobilinogen NEG Urine Leukocyte Esterase NEG Urine Opiates Screen NEG Urine Methadone, Qualitative NEG Urine Barbiturates NEG Urine Phencyclidine (PCP) Level NEG Ur Amphetamine/Methamphetamine NEG MDMA (Ecstasy) Screen NEG Urine Benzodiazepines Screen NEG Urine Cocaine Metabolite NEG Urine Marijuana (THC) POS Urine Marijuana (THC Carboxy Acid) 93 White Blood Count 8.57 Red Blood Count 5.25 Hemoglobin 15.9 Hematocrit 43.3 Mean Corpuscular Volume 82.5 Mean Corpuscular Hemoglobin 30.3 Mean Corpuscular Hemoglobin Concent 36.7 RDW Standard Deviation 37.5 RDW Coefficient of Variation 12.5 Platelet Count 292 Mean Platelet Volume 9.8 Sodium Level 136 Potassium Level 3.8 Chloride Level 107 Carbon Dioxide Level 24 Anion Gap 5.0 Blood Urea Nitrogen 12 Creatinine 0.98 Est Creatinine Clear Calc Drug Dose 191.2 Estimated GFR () 126.3 Estimated GFR (Non- 109.0 BUN/Creatinine Ratio 11.9 Random Glucose 98 Calcium Level 9.0 Total Bilirubin 0.3 Direct Bilirubin < 0.1 Aspartate Amino Transferase (AST) 13 Alanine Aminotransferase (ALT) 34 Alkaline Phosphatase 84 Total Protein 7.3 Albumin 3.5 Thyroid Stimulating Hormone (TSH) 1.880 Salicylates Level < 1.7 Acetaminophen Level < 2 Ethyl Alcohol mg/dL < 3.0 Total Time Total Time Spent (min): Greater than 30 minutes Total Time Included: examination of the patient, discharge planning, medication reconciliation, communication with other providers Tobacco Cessation at Discharge Smoking Status: Never Smoker FDA approved Prescription: non-smoker Problem Qualifiers (1) Depression: Depression Type: major depressive disorder Major depression recurrence: recurrent Active/Remission status: currently active Major depression episode severity: severe Psychotic features: without psychotic features Qualified Codes: F33.2 - Major depressive disorder, recurrent severe without psychotic features
== END 2017-03-06 10:20 | disposition home or self-care (01) | DRG 885 ==
LOC: C.EDB 15:31 → C.MHU 19:16 → ENRESERV 19:45 → C.MHU 03-03 16:51
PROVIDERS: ADMIT Psychiatry & Neurology Psychiatry; ATTEND Psychiatry & Neurology Psychiatry
DX: F33.2 Major depressive disorder, recurrent severe without psychotic features (principal); R45.851 Suicidal ideations; F41.9 Anxiety disorder, unspecified; Z81.8 Family history of other mental and behavioral disorders